=== PATIENT | male | born 1940 | race Caucasian/White ===

== ENCOUNTER → 2017-02-11 | Outpatient (CLI) | payer MEDICARE, BC ==
[~2017-02-11] MED LIST: ASPI325T PO; CYCL5TAB PO; DIAZ5 PO; IBUP-232 PO; INSU-171; MOTR200T4 PO; NEXI20CA PO; PRAV80TA2 PO; RAMI10CA PO; TEST200I12 IM; VITA100064 PO
[2017-02-11 13:09] LABS: AUTOMATED NEUTROPHIL # 4.4 TH/MM3 (1.8-7.7); BASOPHIL % 0.6 % (0.0-2.0); EOSINOPHIL # 0.2 TH/MM3 (0-0.4); EOSINOPHIL % 2.8 % (0.0-4.0); HEMATOCRIT 49.3 % (39.0-51.0); HEMO FLAGS DIFF FINAL; LYMPH % 24.5 % (9.0-44.0); LYMPHOCYTE # 1.7 TH/MM3 (1.0-4.8); MEAN CORPUSCULAR HEMOGLOBIN 29.5 PG (27.0-34.0); MEAN CORPUSCULAR HGB CONC 34.3 % (32.0-36.0); MONO % 9.2 % (0.0-8.0); NEUT % 62.9 % (16.0-70.0); PLATELET COUNT 250 TH/MM3 (150-450); RED BLOOD COUNT 5.73 MIL/MM3 (4.50-5.90)
== END ==
LOC: PLAB 09:57
PROVIDERS: ATTEND Nurse Practitioner Family
DX: I69.998 Other sequelae following unspecified cerebrovascular disease (principal)
CPT/HCPCS: 36415; 84443; 85025